=== PATIENT | male | born 1950 | race Caucasian/White ===

== ENCOUNTER 2017-06-06 07:49 | Outpatient (CLI) | payer MEDICARE ==
--- NOTE | 2017-06-06 09:23 | RAD ---
TWO VIEW CHEST: Indication: Dyspnea. FINDINGS: No prior comparison available. No lobar consolidation, effusion, or pneumothorax. There is slight irregularity of the infralateral l eft ribs which may be on the basis of chronic post-traumatic sequellae. Subtle densities at the right shoulder may relate to prior surgery. Cardiomediastinal silhouette is within normal in size. There i s tortuosity of the aorta. Scattered osseous degenerative change is present. IMPRESSION: No focal consolidation. POS: [facility]
== END 2017-06-06 07:50 | disposition home or self-care (01) ==
LOC: RAD 07:49
PROVIDERS: ATTEND Internal Medicine Critical Care Medicine
DX: R06.00 Dyspnea, unspecified (principal)
CPT/HCPCS: 71046

== ENCOUNTER 2018-05-20 10:28 | Outpatient (CLI) | payer MEDICARE ==
--- NOTE | 2018-05-20 11:33 | RAD ---
PA AND LATERAL VIEWS CHEST: Date: 05/20/18 HISTORY: Asbestosis. FINDINGS: Comparison made with exam of 06/06/17. FINDINGS: The heart size is normal. The aorta is tortuous. The lungs are well expanded without focal areas of c onsolidation, pneumothoraces, or pleural effusions. No calcified pleural plaques are seen. There are degenerative changes in the spine. Postop changes seen in the right shoulder. IMPRESSION: Stable exam. No acute process. POS: [facility]
== END 2018-05-20 10:29 | disposition home or self-care (01) ==
LOC: RAD 10:28
PROVIDERS: ATTEND Internal Medicine Critical Care Medicine
DX: J61 Pneumoconiosis due to asbestos and other mineral fibers (principal)
CPT/HCPCS: 71046

== ENCOUNTER 2019-07-28 08:27 | Outpatient (CLI) | payer MEDICARE ==
--- NOTE | 2019-07-28 08:54 | RAD ---
EXAM: Two views chest PROVIDED CLINICAL HISTORY: Dyspnea COMPARISON: 05/20/2018 FINDINGS: Cardiac silhouette and pulmonary vasculature are within normal limits. The lungs are clear. 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 Chest is stable when compared to prior exam. IMPRESSION: No acute cardiopulmonary process.
== END 2019-07-28 08:28 | disposition home or self-care (01) ==
LOC: RAD 08:27
PROVIDERS: ATTEND Internal Medicine Critical Care Medicine
DX: R06.00 Dyspnea, unspecified (principal)
CPT/HCPCS: 71046

== ENCOUNTER 2020-07-26 09:11 | Outpatient (CLI) | payer MEDICARE | END 2020-07-26 09:12 | disposition home or self-care (01) | LOC: BICRAD 09:11 | PROVIDERS: ATTEND Internal Medicine Critical Care Medicine | DX: R06.00 Dyspnea, unspecified (principal) | CPT/HCPCS: 71046 ==

== ENCOUNTER 2020-12-07 12:39 | Outpatient (CLI) | payer MEDICARE ==
[2020-12-07] MEDS ORDERED: Magnevist 469MG/ML 20 ML VIAL ONE (12:48)
[2020-12-07 13:29] LABS: Estimated GFR-MDRD - POC Greater than 90
== END 2020-12-07 12:40 | disposition home or self-care (01) ==
LOC: MRI 12:39
PROVIDERS: ATTEND Internal Medicine Cardiovascular Disease
DX: I63.9 Cerebral infarction, unspecified (principal); I67.89 Other cerebrovascular disease; G93.9 Disorder of brain, unspecified
CPT/HCPCS: 70553; 82565

== ENCOUNTER 2021-09-14 10:11 | Outpatient (CLI) | payer MEDICARE | END 2021-09-14 10:12 | disposition home or self-care (01) | LOC: RAD 10:11 | PROVIDERS: ATTEND Internal Medicine Critical Care Medicine | DX: R06.00 Dyspnea, unspecified (principal) | CPT/HCPCS: 71046 ==

== ENCOUNTER 2022-11-01 09:57 | Outpatient (CLI) | payer MEDICARE | END 2022-11-01 09:58 | disposition home or self-care (01) | LOC: RAD 09:57 | PROVIDERS: ATTEND Internal Medicine Critical Care Medicine | DX: R06.00 Dyspnea, unspecified (principal) | CPT/HCPCS: 71046 ==

== ENCOUNTER 2023-04-05 11:20 | Outpatient (CLI) | payer MEDICARE | END 2023-04-05 11:21 | disposition home or self-care (01) | LOC: BICMRI 11:20 | PROVIDERS: ATTEND Specialist | DX: M47.22 Other spondylosis with radiculopathy, cervical region (principal); M47.813 Spondylosis without myelopathy or radiculopathy, cervicothoracic region | CPT/HCPCS: 72141 ==

== ENCOUNTER 2024-01-09 09:35 | Outpatient (CLI) | payer MEDICARE | END 2024-01-09 09:36 | disposition home or self-care (01) | LOC: RAD 09:35 | PROVIDERS: ATTEND Internal Medicine Critical Care Medicine | DX: R06.00 Dyspnea, unspecified (principal) | CPT/HCPCS: 71046 ==

== ENCOUNTER 2025-01-14 08:18 | Outpatient (CLI) | payer MEDICARE | END 2025-01-14 08:19 | disposition home or self-care (01) | LOC: RAD 08:18 | PROVIDERS: ATTEND Internal Medicine Critical Care Medicine | DX: R06.00 Dyspnea, unspecified (principal) | CPT/HCPCS: 71046 ==